=== PATIENT | female | born 1995 | race Caucasian/White ===

== ENCOUNTER 2019-09-03 08:55 | Emergency (ER) | payer SELFPAY ==
[2019-09-03] MEDS ORDERED: Sodium Chloride 0.9% 10 ML Syringe FLUSH PRN (08:57)
[2019-09-03] MEDS ORDERED: Sodium Chloride 0.9% 2.5 ML Syringe FLUSH PRN (08:57)
[2019-09-03] MEDS ORDERED: Dextrose 5%-Ringers 1,000 ML IV SCH (09:30)
[2019-09-03] MEDS ORDERED: Ondansetron 4 MG/2 ML SDV IVPUSH ONE (09:31)
--- NOTE | 2019-09-03 09:54 | EDM.PDOC ---
ED HPI GENERAL MEDICAL PROBLEM - General Chief Complaint: Gastrointestinal Problem Stated Complaint: NAUSEA AND VOMITING Time Seen by Provider: 09/03/19 08:57 Source of Information: Reports: Patient History Limitations: Reports: No Limitations - History of Present Illness INITIAL COMMENTS - FREE TEXT/NARRATIVE: 24-year-old female with no past medical history, presenting with nausea and vomiting. Patient took a home test which was positive x3. Last menstrual cycle was approximately 5 to 6 weeks ago. 2-day history of nausea with nonbloody emesis. Reports 5-6 episodes of emesis since midnight. No diarrhea or rectal bleeding. No hematemesis. No vaginal bleeding or discharge. No abdominal or back pain, fever, chest pain, shortness of breath. No self treatment prior to arrival. No other complaints. 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 Denies: Abdominal Pain, Black Stool, Bloody Stool, Constipation, Diarrhea, Distension, Hematemesis, Hematochezia, Melena : Denies: Discharge, Dysuria, Flank Pain, Hematuria, Pain Musculoskeletal: Denies: Back Pain Skin: Denies: Pallor, Rash Neurological: Denies: Headache Psychiatric: Reports: No Symptoms Hematologic/Lymphatic: Reports: No Symptoms Immunologic: Reports: No Symptoms ED EXAM, GI/ABD - Physical Exam Exam: See Below Text/Narrative:: Vital signs reviewed. Nursing notes reviewed. Constitutional: Awake, alert, non-distressed. Head: Normocephalic, atraumatic. Eyes: EOMI, conjunctiva normal, no discharge, no scleral icterus. Ears, Nose, Throat: External ears and nose normal, moist oral mucosa. Cardiovascular: 2+ radial pulse, capillary refill less than 2 seconds. Pulmonary: normal work of breathing, no accessory muscle use. Abdomen/GI: Soft, nontender, nondistended, no guarding or rigidity, no masses. Musculoskeletal: No deformities. Integumentary: Appropriate color for ethnicity, warm, dry, no pallor or jaundice, no rash. Neurologic: Alert, answering questions appropriately, normal speech, no facial droop, moving all extremities well. Psychiatric: Appropriate mood and affect, normal thought process. Course - Vital Signs Text/Narrative:: Patient hemodynamically stable, afebrile, well-appearing, looks nontoxic. Differential diagnosis includes but is not limited to: morning sickness, electrolyte disturbance, intravascular volume depletion, UTI, DKA, etc. Electrolytes show very mild hypokalemia, normal renal function, normal LFTs. Urinalysis has ketones. CBC looks reassuring. Given Zofran and 1 L of D5 lactated Ringer's. hCG 25,019. OB ultrasound demonstrated a single intrauterine gestation in approximately 6 weeks 0 days. Normal-looking amniotic fluid volume and decidual reaction. Cardiac activity was demonstrated. Patient felt better after Zofran and IV fluids. She is stable discharge home with outpatient OB clinic or primary care follow-up. Short course of Zofran was sent to the pharmacy. Strict emergency department return precautions were provided, patient indicated understanding. All questions were answered prior to departure. Discharged in good condition. Last Recorded V/S: Last Vital Signs Temp 36.6 C 09/03/19 09:18 Pulse 61 09/03/19 11:26 Resp 16 09/03/19 11:26 BP 98/47 L 09/03/19 11:26 Pulse Ox 100 09/03/19 11:26 - Orders/Labs/Meds Orders: Active Orders 24 hr Category Date Time Status Pulse Oximetry [RC] ASDIRECTED Care 09/03/19 08:57 Active Dextrose 5%-Ringers 1,000 ml Med 09/03/19 09:30 Active IV ASDIRECTED Sodium Chloride 0.9% [Saline Flush] Med 06/24/20 08:57 Active 10 ml FLUSH ASDIRECTED PRN Sodium Chloride 0.9% [Saline Flush] Med 09/03/19 08:57 Active 2.5 ml FLUSH ASDIRECTED PRN Saline Lock Insert [OM.PC] Stat Oth 09/03/19 08:57 Ordered Medication Orders Dextrose/Ringer's (Dextrose 5%-Ringers) 1,000 mls @ 1,000 mls/hr IV ASDIRECTED ELOY Sodium Chloride (Saline Flush) 10 ml FLUSH ASDIRECTED PRN PRN Reason: Keep Vein Open Last Admin: 09/03/19 09:21 Dose: 10 ml Documented by: DHARA Sodium Chloride (Saline Flush) 2.5 ml FLUSH ASDIRECTED PRN PRN Reason: Keep Vein Open Last Admin: 09/03/19 09:21 Dose: 2.5 ml Documented by: DHARA Labs: Laboratory Tests 09/03/19 09/03/19 09/03/19 Range/Units 09:09 09:28 09:28 WBC 7.38 (4.0-11.0) K/uL RBC 4.32 (4.30-5.90) M/uL Hgb 13.7 (12.0-16.0) g/dL Hct 40.1 (36.0-46.0) % MCV 92.8 (80.0-98.0) fL MCH 31.7 (27.0-32.0) pg MCHC 34.2 (31.0-37.0) g/dL RDW Std Deviation 41.8 (28.0-62.0) fl RDW Coeff of Paulie 12 (11.0-15.0) % Plt Count 223 (150-400) K/uL MPV 10.20 (7.40-12.00) fL Neut % (Auto) 74.7 (48.0-80.0) % Lymph % (Auto) 19.5 (16.0-40.0) % [place] % (Auto) 5.6 (0.0-15.0) % Eos % (Auto) 0.1 (0.0-7.0) % Baso % (Auto) 0.1 (0.0-1.5) % Neut # (Auto) 5.5 (1.4-5.7) K/uL Lymph # (Auto) 1.4 (0.6-2.4) K/uL [place] # (Auto) 0.4 (0.0-0.8) K/uL Eos # (Auto) 0.0 (0.0-0.7) K/uL Baso # (Auto) 0.0 (0.0-0.1) K/uL Nucleated RBC % 0.0 /100WBC Nucleated RBCs # 0 K/uL Sodium 134 L (136-145) mmol/L Potassium 3.4 L (3.5-5.1) mmol/L Chloride 99 (98-107) mmol/L Carbon Dioxide 25.0 (21.0-32.0) mmol/L BUN 7 (7.0-18.0) mg/dL Creatinine 0.8 (0.6-1.0) mg/dL Est Cr Clr Drug Dosing 96.73 mL/min Estimated GFR (MDRD) > 60.0 ml/min Glucose 97 (74-106) mg/dL Calcium 9.0 (8.5-10.1) mg/dL Total Bilirubin 0.8 (0.2-1.0) mg/dL AST 19 (15-37) IU/L ALT 26 (14-63) IU/L Alkaline Phosphatase 54 (46-116) U/L Total Protein 7.4 (6.4-8.2) g/dL Albumin 4.1 (3.4-5.0) g/dL Globulin 3.3 (2.6-4.0) g/dL Albumin/Globulin Ratio 1.2 (0.9-1.6) HCG, Qual (NEG) HCG, Quant mIU/mL Urine Color YELLOW Urine Appearance CLEAR Urine pH 6.0 (5.0-8.0) Ur Specific [place] >= 1.030 (1.001-1.035) Urine Protein NEGATIVE (NEGATIVE) mg/dL Urine Glucose (UA) NEGATIVE (NEGATIVE) mg/dL Urine Ketones 40 H (NEGATIVE) mg/dL Urine Occult Blood NEGATIVE (NEGATIVE) Urine Nitrite NEGATIVE (NEGATIVE) Urine Bilirubin NEGATIVE (NEGATIVE) Urine Urobilinogen 0.2 (<2.0) EU/dL Ur Leukocyte Esterase NEGATIVE (NEGATIVE) 09/03/19 09/03/19 Range/Units 09:28 09:28 WBC (4.0-11.0) K/uL RBC (4.30-5.90) M/uL Hgb (12.0-16.0) g/dL Hct (36.0-46.0) % MCV (80.0-98.0) fL MCH (27.0-32.0) pg MCHC (31.0-37.0) g/dL RDW Std Deviation (28.0-62.0) fl RDW Coeff of Paulie (11.0-15.0) % Plt Count (150-400) K/uL MPV (7.40-12.00) fL Neut % (Auto) (48.0-80.0) % Lymph % (Auto) (16.0-40.0) % [place] % (Auto) (0.0-15.0) % Eos % (Auto) (0.0-7.0) % Baso % (Auto) (0.0-1.5) % Neut # (Auto) (1.4-5.7) K/uL Lymph # (Auto) (0.6-2.4) K/uL [place] # (Auto) (0.0-0.8) K/uL Eos # (Auto) (0.0-0.7) K/uL Baso # (Auto) (0.0-0.1) K/uL Nucleated RBC % /100WBC Nucleated RBCs # K/uL Sodium (136-145) mmol/L Potassium (3.5-5.1) mmol/L Chloride (98-107) mmol/L Carbon Dioxide (21.0-32.0) mmol/L BUN (7.0-18.0) mg/dL Creatinine (0.6-1.0) mg/dL Est Cr Clr Drug Dosing mL/min Estimated GFR (MDRD) ml/min Glucose (74-106) mg/dL Calcium (8.5-10.1) mg/dL Total Bilirubin (0.2-1.0) mg/dL AST (15-37) IU/L ALT (14-63) IU/L Alkaline Phosphatase (46-116) U/L Total Protein (6.4-8.2) g/dL Albumin (3.4-5.0) g/dL Globulin (2.6-4.0) g/dL Albumin/Globulin Ratio (0.9-1.6) HCG, Qual POSITIVE H (NEG) HCG, Quant 63039.0 mIU/mL Urine Color Urine Appearance Urine pH (5.0-8.0) Ur Specific [place] (1.001-1.035) Urine Protein (NEGATIVE) mg/dL Urine Glucose (UA) (NEGATIVE) mg/dL Urine Ketones (NEGATIVE) mg/dL Urine Occult Blood (NEGATIVE) Urine Nitrite (NEGATIVE) Urine Bilirubin (NEGATIVE) Urine Urobilinogen (<2.0) EU/dL Ur Leukocyte Esterase (NEGATIVE) Meds: Medications Generic Name Dose Route Start Last Admin Trade Name Freq PRN Reason Stop Dose Admin Dextrose/Ringer's 1,000 mls @ 1,000 mls/hr 09/03/19 09:30 Dextrose 5%-Ringers IV ASDIRECTED ELOY Sodium Chloride 10 ml 09/03/19 08:57 09/03/19 09:21 Saline Flush FLUSH 10 ml ASDIRECTED PRN Administration Keep Vein Open Sodium Chloride 2.5 ml 09/03/19 08:57 09/03/19 09:21 Saline Flush FLUSH 2.5 ml ASDIRECTED PRN Administration Keep Vein Open Discontinued Medications Generic Name Dose Route Start Last Admin Trade Name Freq PRN Reason Stop Dose Admin Ondansetron HCl 4 mg 09/03/19 09:31 09/03/19 09:51 Zofran IVPUSH 09/03/19 09:32 4 mg ONETIME ONE Administration Departure - Departure Time of Disposition: 11:37 Disposition: Home, Self-Care 01 Condition: Good Clinical Impression: Nausea and vomiting during - Discharge Information *PRESCRIPTION DRUG MONITORING PROGRAM REVIEWED*: Not Applicable *COPY OF PRESCRIPTION DRUG MONITORING REPORT IN PATIENT AIDE: Not Applicable Prescriptions: Ondansetron [Zofran] 4 mg PO Q8H PRN #10 tab PRN Reason: Nausea/Vomiting Instructions: Nausea and Vomiting, Adult [facility]errals: [facility] [Provider Group] - 2 Weeks (For routine follow-up care.) Forms: ED Department Discharge Additional Instructions: Thank you for choosing the [facility] emergency department in [place] for your medical needs today. It was a pleasure caring for you. You were seen in the emergency department for nausea and vomiting. Your urinalysis showed that you are mildly dehydrated. We gave you some IV fluids and nausea medication. Your looks reassuring by the ultrasound study. I prescribed a short course of Zofran for nausea to the pharmacy. If this is not working and you are having severe vomiting, you should come back to the ER. I recommend calling the [facility] to set up an initial OB clinic appointment. Please return the emergency department immediately if your symptoms worsen or if you feel worse. The following information is given to patients seen in the emergency department who are being discharged. This information is to outline your options for follow-up care. We provide all patients seen in our emergency department with a follow-up referral. The need for follow-up, as well as the timing and circumstances, are variable depending upon the specifics of your emergency department visit. If you don't have a primary care physician on staff, we will provide you with a referral. We always advise you to contact your personal physician following an emergency department visit to inform them of the circumstance of the visit and for follow-up with them and/or the need for any referrals to a consulting specialist. The emergency department will also refer you to a specialist when appropriate. This referral assures that you have the opportunity for follow-up care with a specialist. All of these measure are taken in an effort to provide you with optimal care, which includes your follow-up. Under all circumstances we always encourage you to contact your private physician who remains a resource for coordinating your care. When calling for follow-up care, please make the office aware that this follow-up is from your recent emergency room visit. If for any reason you are refused follow-up, please contact the Emergency Department at and asked to speak to the emergency department charge nurse. If you do not have a primary care physician that is caring for you, you can contact these clinics below to set up an appointment to establish care: [facility] - [facility] [address] [place] [id number] [address] [place] [address] Sepsis Event Note (ED) - Evaluation Sepsis Screening Result: No Definite Risk - Focused Exam Vital Signs: Vital Signs Temp Pulse Resp BP Pulse Ox 09/03/19 11:26 61 16 98/47 L 100 09/03/19 09:18 36.6 C 68 16 103/60 99 - My Orders Last 24 Hours: My Active Orders 09/03/19 08:57 Pulse Oximetry [RC] ASDIRECTED Sodium Chloride 0.9% [Saline Flush] 10 ml FLUSH ASDIRECTED PRN Sodium Chloride 0.9% [Saline Flush] 2.5 ml FLUSH ASDIRECTED PRN Saline Lock Insert [OM.PC] Stat 09/03/19 09:30 Dextrose 5%-Ringers 1,000 ml IV ASDIRECTED - Assessment/Plan Last 24 Hours: My Active Orders 09/03/19 08:57 Pulse Oximetry [RC] ASDIRECTED Sodium Chloride 0.9% [Saline Flush] 10 ml FLUSH ASDIRECTED PRN Sodium Chloride 0.9% [Saline Flush] 2.5 ml FLUSH ASDIRECTED PRN Saline Lock Insert [OM.PC] Stat 09/03/19 09:30 Dextrose 5%-Ringers 1,000 ml IV ASDIRECTED
[2019-09-03 10:22] LABS: BLOOD UREA NITROGEN,BUN 7 mg/dL (7.0-18.0); CHLORIDE,CL 99 mmol/L (98-107); GLUCOSE RANDOM 97 mg/dL (74-106); POTASSIUM,K 3.4 mmol/L (3.5-5.1); SODIUM,NA 134 mmol/L (136-145)
--- NOTE | 2019-09-03 10:54 | US ---
First trimester obstetrical ultrasound: Multiple real-time images were obtained transvaginally. Comparison: No prior study for current . Dates: Current ultrasound: [facility] 04/28/20, gestational age 6 weeks 0 days Single intrauterine gestation is seen. Amniotic fluid volume is normal. Normal decidual reaction is seen. Yolk sac and pole are seen. Heart activity is noted. Maternal ovaries are within normal limits. Measurements: Christie-rump length: 2.60 cm - 5 weeks 6 days Mean sac diameter: 1.33 cm - 6 weeks 1 day Heart rate: 106 BPM Impression: 1. Single intrauterine gestation. Dates as noted above. 2. Low heart rate believed to to be normal for this early gestational age. No complicating process is seen. Diagnostic code #1 This report was dictated in MDT
== END 2019-09-03 11:55 | disposition home or self-care (01) ==
LOC: MW.ED 08:55
DX: O21.9 Vomiting of pregnancy, unspecified (principal); Z88.0 Allergy status to penicillin; Z3A.01 Less than 8 weeks gestation of pregnancy
CPT/HCPCS: 36415; 76817; 80053; 81003; 84702; 84703; 85025; 96374; 99284; J2405

== ENCOUNTER 2019-12-05 18:37 | Emergency (ER) | payer OTHER | END 2019-12-05 19:24 | disposition left against medical advice (07) | LOC: MW.ED 18:37 | DX: Z53.21 Procedure and treatment not carried out due to patient leaving prior to being seen by health care provider (principal) ==

== ENCOUNTER 2020-03-23 15:45 | Emergency (ER) | payer OTHER ==
--- NOTE | 2020-03-23 16:57 | EDM.PDOC ---
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 The patient states that she had a menstrual period in February but does not know when. Positive test on March 19. 3 para 0 miscarriage 1 1. Otherwise healthy without chronic medical problems. Denies nausea vomiting diarrhea constipation. She has a brown formed stool daily. Denies vaginal bleeding or discharge. No dysuria. Lying in a p osition helps the pain. It is a throbbing and stabbing in character. LLQ Pain Score (Numeric/FACES): 6 - Related Data Allergies Allergy/AdvReac Type Severity Reaction Status Date / Time Penicillins Allergy Hives Verified 03/23/20 16:46 Home Meds: Home Meds . 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 ED EXAM, RENAL/ - Physical Exam Exam: See Below Exam Limited By: No Limitations General Appearance: Alert, No Apparent Distress Ears: Normal External Exam Nose: Normal Inspection Throat/Mouth: Normal Inspection Head: Atraumatic, Normocephalic Neck: Normal Inspection Respiratory/Chest: No Respiratory Distress, Lungs Clear, Normal Breath Sounds Cardiovascular: Normal Peripheral Pulses, Regular Rate, Rhythm, No Edema, No Murmur GI/Abdominal: Soft, Non-Tender, No Distention Back Exam: Normal Inspection. No: CVA Tenderness (L), CVA Tenderness (R) Extremities: Normal Inspection Neurological: Alert, Oriented, Normal Cognition Psychiatric: Normal Affect, Normal Mood Skin Exam: Warm, Dry, Intact, Normal Color, No Rash Lymphatic: No Adenopathy Course - Vital Signs Last Recorded V/S: Last Vital Signs Temp 35.8 C L 03/23/20 16:34 Pulse 75 03/23/20 16:34 Resp 20 03/23/20 16:34 BP 118/52 L 03/23/20 16:34 Pulse Ox 96 03/23/20 16:34 - Orders/Labs/Meds Labs: Laboratory Tests 03/23/20 03/23/20 03/23/20 Range/Units 16:20 17:30 17:30 WBC 6.45 (4.0-11.0) K/uL RBC 4.43 (4.30-5.90) M/uL Hgb 12.2 (12.0-16.0) g/dL Hct 37.9 (36.0-46.0) % MCV 85.6 (80.0-98.0) fL MCH 27.5 (27.0-32.0) pg MCHC 32.2 (31.0-37.0) g/dL RDW Std Deviation 49.8 (28.0-62.0) fl RDW Coeff of Paulie 16 H (11.0-15.0) % Plt Count 251 (150-400) K/uL MPV 10.50 (7.40-12.00) fL Neut % (Auto) 63.1 (48.0-80.0) % Lymph % (Auto) 30.1 (16.0-40.0) % [place] % (Auto) 5.6 (0.0-15.0) % Eos % (Auto) 0.9 (0.0-7.0) % Baso % (Auto) 0.3 (0.0-1.5) % Neut # (Auto) 4.1 (1.4-5.7) K/uL Lymph # (Auto) 1.9 (0.6-2.4) K/uL [place] # (Auto) 0.4 (0.0-0.8) K/uL Eos # (Auto) 0.1 (0.0-0.7) K/uL Baso # (Auto) 0.0 (0.0-0.1) K/uL Nucleated RBC % 0.0 /100WBC Nucleated RBCs # 0 K/uL HCG, Quant 3337.0 mIU/mL Urine Color YELLOW Urine Appearance CLEAR Urine pH 7.0 (5.0-8.0) Ur Specific [place] 1.020 (1.001-1.035) Urine Protein NEGATIVE (NEGATIVE) mg/dL Urine Glucose (UA) NEGATIVE (NEGATIVE) mg/dL Urine Ketones NEGATIVE (NEGATIVE) mg/dL Urine Occult Blood NEGATIVE (NEGATIVE) Urine Nitrite NEGATIVE (NEGATIVE) Urine Bilirubin NEGATIVE (NEGATIVE) Urine Urobilinogen 0.2 (<2.0) EU/dL Ur Leukocyte Esterase NEGATIVE (NEGATIVE) Urine RBC 0-1 (0-2/HPF) Urine WBC 0-1 (0-5/HPF) Ur Epithelial Cells RARE (NONE-FEW) Urine Bacteria RARE (NEGATIVE) - Re-Assessments/Exams Free Text/Narrative Re-Assessment/Exam: 03/23/20 18:[address] 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 Same will see patient early am in the clinic. NPO status. Departure - Departure Time of Disposition: 18:55 Disposition: Home, Self-Care 01 Condition: Good Clinical Impression: Tubal - Discharge Information Referrals: PCP,None [Primary Care Provider] - Sascha Little MD [Physician] - Forms: ED Department Discharge Additional Instructions: The following information is given to patients seen in the emergency department who are being discharged to home. This information is to outline your options for follow-up care. We provide all patients seen in our emergency department with a follow-up referral. The need for follow-up, as well as the timing and circumstances, are variable depending upon the specifics of your emergency department visit. If you don't have a primary care physician on staff, we will provide you with a referral. We always advise you to contact your personal physician following an emergency department visit to inform them of the circumstance of the visit and for follow-up with them and/or the need for any referrals to a consulting specialist. The emergency department will also refer you to a specialist when appropriate. This referral assures that you have the opportunity for follow-up care with a specialist. All of these measure are taken in an effort to provide you with optimal care, which includes your follow-up. Under all circumstances we always encourage you to contact your private physician who remains a resource for coordinating your care. When calling for follow-up care, please make the office aware that this follow-up is from your recent emergency room visit. If for any reason you are refused follow-up, please contact the [facility] Emergency Department at and asked to speak to the emergency department charge nurse. 1. Return to the emergency room promptly for vaginal bleeding or increasing pelvic pain 2. To the [facility], Dr. Little at 9 AM tomorrow morning. Do not eat or drink anything after midnight tonight. Sepsis Event Note (ED) - Evaluation Sepsis Screening Result: No Definite Risk - Focused Exam Vital Signs: Vital Signs Temp Pulse Resp BP Pulse Ox 03/23/20 16:34 35.8 C L 75 20 118/52 L 96
--- NOTE | 2020-03-23 18:20 | US ---
INDICATION: Left lower quadrant and pelvic pain TECHNIQUE: Ultrasound OB pelvis transvaginal. Real-time boogie-scale imaging of the pelvis was performed. COMPARISON: None FINDINGS: Sonographic imaging demonstrates 2 cystic areas in the midportion and fundal regions of the uterus. These measure up to 4 mm in size. There is no yolk sac or embryo identified. There is a nabothian cyst on the cervix. The uterus measures 8.3 x 4.8 x 5.9 cm. Normal echotexture of the myometrium. The endometrium measures 1.2 cm in thickness. The ovaries are of normal size. There is a 2.3 x 1.7 x 2.2 cm complex cystic mass on the right ovary. There is a small amount of free fluid in the pelvis. The left ovary is normal in appearance. No evidence for ovarian torsion. IMPRESSION: Complex cystic mass on the right ovary with small amount of free fluid. Ectopic cannot be excluded. Two tiny cystic areas in the uterus. One of these could conceivably represent a early gestational sac. Recommend correlation with HCG and gynecology consultation. Findings discussed with Gaby Bryan at 6:18 p.m. on March 23, 2020. Dictated by Rita Santos MD @ Mar 23 2020 6:08PM Signed by Dr. Rita Santos @ Mar 23 2020 6:19PM
== END 2020-03-23 19:10 | disposition home or self-care (01) ==
LOC: MW.ED 15:45
DX: O00.109 Unspecified tubal pregnancy without intrauterine pregnancy (principal); Z88.0 Allergy status to penicillin
CPT/HCPCS: 36415; 76801; 76801-26; 81001; 84702; 85025; 99283; 99284-25

== ENCOUNTER 2020-03-24 04:28 | Emergency (ER) | payer OTHER ==
--- NOTE | 2020-03-24 04:49 | EDM.PDOC ---
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 The patient is nauseated and feels like she is going to vomit. She was here earlier at 5:30 PM and had a work-up for abdominal pain and was discovered to have a probable ectopic by ultrasound with a beta hCG of over 3300. The patient is a G3, P0 Ab2 (1 spontaneous and 1 elective). Is nauseated and feels weak with abdominal pain but is not lightheaded or orthostatic not diaphoretic. You have the prior visit reveals that on ultrasound she had a complex mass she had had pain for 3days. Since were made for her to see you the polymerization engineer at 8:30 in the morning this morning. The patient is n.p.o. since 9 PM. [] Review of systems: As per history of present illness and below otherwise all systems reviewed and negative. Past medical history: As per history of present illness and as reviewed below otherwise noncontributory. Surgical history: As per history of present illness and as reviewed below otherwise noncontributory. Social history: No reported history of drug or alcohol abuse. Family history: As per history of present illness and as reviewed below otherwise noncontributory. Physical exam: Constitutional - well developed, well-nourished and in no acute distress HEENT - normocephalic, no evidence of trauma - external nose and mouth normal - no mass in neck and no JVD - mucosae moist EYES - full EOM, PERRL, no icterus - no evidence of inflammation, injection, or drainage Respiratory - no respiratory distress, equal bilateral expansion, lungs clear to auscultation and no abnormal lung sounds Cardiovascular - Regular Rhythm with S1 and S2 appreciated and no murmur, gallop or rub. GI -the right lower quadrant abdomen soft without distension or organomegaly - normal bowel sounds - no guard or rebound Musculoskeletal no gross deformity of long bones or joints - no tenderness, swelling or edema Neurologic - Alert and oriented times four - CN II-XII grossly intact - motor sensory and coordination symmetrically normal Psychiatric - appropriate mood and affect with normal thought content Hematologic - No petechiae or purpura - mucosa appropriate color and sclera not pale - normal nail bed color and refill Integument - no rash or evidence of trauma - normal turgor Diagnostics: [] Therapeutics: [] Impression: [] Plan: [] Definitive disposition and diagnosis as appropriate pending reevaluation and review of above. Abdomen Pain Score (Numeric/FACES): 7 Groin Pain Score (Numeric/FACES): 7 - Related Data Allergies Allergy/AdvReac Type Severity Reaction Status Date / Time latex Allergy Rash Verified 03/24/20 04:47 Penicillins Allergy Hives Verified 03/24/20 04:47 Home Meds: Home Meds . [No Known Home Meds] 03/23/20 [History] Past Medical History - Past Health History Medical/Surgical History: Denies Medical/Surgical History BELT LACER History: Reports: , Spontaneous - Infectious Disease History Infectious Disease History: Reports: None Social & Family History - Family History Family Medical History: No Pertinent Family History - Caffeine Use Caffeine Use: Reports: None ED ROS GENERAL - Review of Systems Review Of Systems: Comprehensive ROS is negative, except as noted in HPI. ED EXAM, GENERAL - Physical Exam Exam: See Below Free Text/Narrative:: My physical exam is in the HPI Course - Vital Signs Text/Narrative:: 05 40 2 AM blood counts identical to the 11 hours before this drawl. Patient had her pain relieved and her fear reassured. She wants to go home and come back for the visit that scheduled with Dr. Little Last Recorded V/S: Last Vital Signs Temp 36.6 C 03/24/20 04:44 Pulse 78 03/24/20 04:44 Resp 16 03/24/20 04:44 BP 99/53 L 03/24/20 04:44 Pulse Ox 97 03/24/20 04:44 - Orders/Labs/Meds Orders: Active Orders 24 hr Category Date Time Status TYPE AND SCREEN [BBK] Stat Lab 03/24/20 05:11 Received Sodium Chloride 0.9% [Normal Saline] 500 ml Med 03/24/20 05:00 Active IV .BOLUS Sodium Chloride 0.9% [Saline Flush] Med 03/24/20 04:43 Active 10 ml FLUSH ASDIRECTED PRN Sodium Chloride 0.9% [Saline Flush] Med 03/24/20 04:43 Active 2.5 ml FLUSH ASDIRECTED PRN Saline Lock Insert [OM.PC] Stat Oth 03/24/20 04:43 Ordered Medication Orders Sodium Chloride (Normal Saline) 500 mls @ 250 mls/hr IV .BOLUS ELOY Last Admin: 03/24/20 04:57 Dose: 250 mls/hr Documented by: SHAKEEL Sodium Chloride (Saline Flush) 10 ml FLUSH ASDIRECTED PRN PRN Reason: Keep Vein Open Last Admin: 03/24/20 05:00 Dose: 10 ml Documented by: SHAKEEL Sodium Chloride (Saline Flush) 2.5 ml FLUSH ASDIRECTED PRN PRN Reason: Keep Vein Open Last Admin: 03/24/20 05:00 Dose: 2.5 ml Documented by: SHAKEEL Labs: Laboratory Tests 03/24/20 Range/Units 04:45 WBC 5.87 (4.0-11.0) K/uL RBC 4.48 (4.30-5.90) M/uL Hgb 12.2 (12.0-16.0) g/dL Hct 38.3 (36.0-46.0) % MCV 85.5 (80.0-98.0) fL MCH 27.2 (27.0-32.0) pg MCHC 31.9 (31.0-37.0) g/dL RDW Std Deviation 49.9 (28.0-62.0) fl RDW Coeff of Paulie 16 H (11.0-15.0) % Plt Count 237 (150-400) K/uL MPV 10.00 (7.40-12.00) fL Neut % (Auto) 52.3 (48.0-80.0) % Lymph % (Auto) 41.1 H (16.0-40.0) % [place] % (Auto) 5.5 (0.0-15.0) % Eos % (Auto) 0.9 (0.0-7.0) % Baso % (Auto) 0.2 (0.0-1.5) % Neut # (Auto) 3.1 (1.4-5.7) K/uL Lymph # (Auto) 2.4 (0.6-2.4) K/uL [place] # (Auto) 0.3 (0.0-0.8) K/uL Eos # (Auto) 0.1 (0.0-0.7) K/uL Baso # (Auto) 0.0 (0.0-0.1) K/uL Nucleated RBC % 0.0 /100WBC Nucleated RBCs # 0 K/uL Meds: Medications Generic Name Dose Route Start Last Admin Trade Name Freq PRN Reason Stop Dose Admin Sodium Chloride 500 mls @ 250 mls/hr 03/24/20 05:00 03/24/20 04:57 Normal Saline IV 250 mls/hr .BOLUS ELOY Administration Sodium Chloride 10 ml 03/24/20 04:43 03/24/20 05:00 Saline Flush FLUSH 10 ml ASDIRECTED PRN Administration Keep Vein Open Sodium Chloride 2.5 ml 03/24/20 04:43 03/24/20 05:00 Saline Flush FLUSH 2.5 ml ASDIRECTED PRN Administration Keep Vein Open Discontinued Medications Generic Name Dose Route Start Last Admin Trade Name Freq PRN Reason Stop Dose Admin Morphine Sulfate 4 mg 03/24/20 04:52 03/24/20 04:58 Morphine IVPUSH 03/24/20 04:53 4 mg ONETIME ONE Administration Ondansetron HCl 4 mg 03/24/20 04:51 03/24/20 04:58 Zofran IVPUSH 03/24/20 04:52 4 mg ONETIME ONE Administration Departure - Departure Time of Disposition: 05:43 Disposition: Home, Self-Care 01 Condition: Good Clinical Impression: Pelvic pain, Ovarian mass, Positive test - Discharge Information Instructions: Pelvic Pain, Female, [id number] Referrals: PCP,None [Primary Care Provider] - Sascha Little MD [Physician] - Forms: ED Department Discharge Additional Instructions: If you are pale sweaty or passing out you need to return immediately also if you bleed heavily. Otherwise remain n.p.o. or without eating or drinking anything and see Dr. Little as arranged at 8:30 AM this morning The following information is given to patients seen in the emergency department who are being discharged to home. This information is to outline your options for follow-up care. We provide all patients seen in our emergency department with a follow-up referral. The need for follow-up, as well as the timing and circumstances, are variable depending upon the specifics of your emergency department visit. If you don't have a primary care physician on staff, we will provide you with a referral. We always advise you to contact your personal physician following an emergency department visit to inform them of the circumstance of the visit and for follow-up with them and/or the need for any referrals to a consulting specialist. The emergency department will also refer you to a specialist when appropriate. This referral assures that you have the opportunity for follow-up care with a specialist. All of these measure are taken in an effort to provide you with optimal care, which includes your follow-up. Under all circumstances we always encourage you to contact your private physician who remains a resource for coordinating your care. When calling for follow-up care, please make the office aware that this follow-up is from your recent emergency room visit. If for any reason you are refused follow-up, please contact the [facility] Emergency Department at and asked to speak to the emergency department charge nurse. Sepsis Event Note (ED) - Evaluation Sepsis Screening Result: No Definite Risk - Focused Exam Vital Signs: Vital Signs Temp Pulse Resp BP Pulse Ox 03/24/20 04:44 36.6 C 78 16 99/53 L 97 - My Orders Last 24 Hours: My Active Orders 03/24/20 04:43 Sodium Chloride 0.9% [Saline Flush] 10 ml FLUSH ASDIRECTED PRN Sodium Chloride 0.9% [Saline Flush] 2.5 ml FLUSH ASDIRECTED PRN Saline Lock Insert [OM.PC] Stat 03/24/20 05:00 Sodium Chloride 0.9% [Normal Saline] 500 ml IV .BOLUS 03/24/20 05:11 TYPE AND SCREEN [BBK] Stat - Assessment/Plan Last 24 Hours: My Active Orders 03/24/20 04:43 Sodium Chloride 0.9% [Saline Flush] 10 ml FLUSH ASDIRECTED PRN Sodium Chloride 0.9% [Saline Flush] 2.5 ml FLUSH ASDIRECTED PRN Saline Lock Insert [OM.PC] Stat 03/24/20 05:00 Sodium Chloride 0.9% [Normal Saline] 500 ml IV .BOLUS 03/24/20 05:11 TYPE AND SCREEN [BBK] Stat
[2020-03-24] MEDS: Sodium Chloride 0.9% 500 ML IV SCH (04:57)
[2020-03-24] MEDS: Ondansetron 4 MG/2 ML SDV IVPUSH ONE (04:58)
[2020-03-24] MEDS: Morphine 4 MG/ML Syringe IVPUSH ONE (04:58)
[2020-03-24] MEDS: Sodium Chloride 0.9% 10 ML Syringe FLUSH PRN (05:00)
[2020-03-24] MEDS: Sodium Chloride 0.9% 2.5 ML Syringe FLUSH PRN (05:00)
== END 2020-03-24 05:54 | disposition home or self-care (01) ==
LOC: MW.ED 04:28
DX: O99.891 Other specified diseases and conditions complicating pregnancy (principal); R10.2 Pelvic and perineal pain; N83.8 Other noninflammatory disorders of ovary, fallopian tube and broad ligament; R11.0 Nausea; R53.1 Weakness; Z91.040 Latex allergy status; Z88.0 Allergy status to penicillin; Z3A.01 Less than 8 weeks gestation of pregnancy
CPT/HCPCS: 36415; 85025; 86850; 86900; 86901; 96374; 96375; 99284; J2270; J2405; J7040; 99282

== ENCOUNTER 2020-03-25 09:17 | Day surgery (SDC) | payer OTHER ==
[~2020-03-25 09:17] MED LIST: Fluorescein 5 ML Vial ONE; Lactated Ringers 1,000 ML IV SCH
[2020-03-25] MEDS ORDERED: Propofol 200 MG/20 ML SDV ONE (10:39)
[2020-03-25] MEDS ORDERED: Midazolam 1 MG/ML 2 ML SDV ONE ×2 (10:40→11:53)
[2020-03-25] MEDS ORDERED: fentaNYL 100 MCG/2 ML SDV ONE (10:40)
[2020-03-25] MEDS ORDERED: Rocuronium Bromide 50 MG/5 ML Syringe ONE (10:42)
[2020-03-25] MEDS ORDERED: Succinylcholine/Sod PF 100 MG/5 ML SYRINGE IV ONE (10:42)
--- NOTE | 2020-03-25 10:43 | PCM.PREANE ---
Preanesthetic Assessment - Anesthesia/Transfusion/Family Hx Anesthesia History: No Prior Anesthesia Family History of Anesthesia Reaction: No Transfusion History: No Prior Transfusion(s) - Review of Systems General: No Symptoms Pulmonary: No Symptoms Cardiovascular: No Symptoms Gastrointestinal: No Symptoms Neurological: No Symptoms Other: Reports: None - Physical Assessment NPO Status Date: 03/24/20 NPO Status Time: 21:00 Vital Signs: Last Vital Signs Temp 36.4 C 03/25/20 09:30 Pulse 82 03/25/20 09:30 Resp 15 03/25/20 09:30 BP 116/55 L 03/25/20 09:30 Pulse Ox 100 03/25/20 09:30 Height: 1.65 m Weight: 61.235 kg ASA Class: 2 Mental Status: Alert & Oriented x3 Airway Class: Mallampati = 2 Dentition: Reports: Partial (upper retainer) Thyro-Mental Finger Breadths: 3 Mouth Opening Finger Breadths: 3 ROM/Head Extension: Full Lungs: Clear to Auscultation, Normal Respiratory Effort Cardiovascular: Regular Rate, Regular Rhythm - Lab Values: Laboratory Last Values SARS-CoV-2 RNA ([place]) NEGATIVE (NEGATIVE) 03/25/20 08:24 - Allergies Allergies/Adverse Reactions: Allergies Allergy/AdvReac Type Severity Reaction Status Date / Time latex Allergy Rash Verified 03/24/20 11:28 Penicillins Allergy Hives Verified 03/24/20 11:28 - Acknowledgements Anesthesia Type Planned: General Anesthesia (discussed possibility of ponv. 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: , 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 Musculoskeletal History: Reports: None Neurological History: Reports: None Psychiatric History: Reports: Anxiety, Panic Attack Endocrine/Metabolic History: Reports: None Hematologic History: Reports: None Immunologic History: Reports: None Oncologic (Cancer) History: Reports: None Dermatologic History: Reports: None - Infectious Disease History Infectious Disease History: Reports: None - Past Surgical History Head Surgeries/Procedures: Reports: None Other Head Surgeries/Procedures: dental extractions HEENT Surgical History: Reports: None Cardiovascular Surgical History: Reports: None Respiratory Surgical History: Reports: None GI Surgical History: Reports: None Female Surgical History: Reports: None Endocrine Surgical History: Reports: None Neurological Surgical History: Reports: None Musculoskeletal Surgical History: Reports: None Oncologic Surgical History: Reports: None Dermatological Surgical History: Reports: None - SUBSTANCE USE Tobacco Use Status *Q: Current Every Day Tobacco User Tobacco Use Within Last Twelve Months: Vaping Second Hand Smoke Exposure: No Days Per Week of Alcohol Use: 0 (stopped 2 weeks ago) Recreational Drug Use History: Yes Recreational Drug Type: Reports: Marijuana/Hashish (stopped 2 weeks ago(when she found out she was )) Recreational Drug Last Use: 2 weeks ago - HOME MEDS Home Medications: Home Meds Albuterol [Ventolin HFA] 1 - 2 puff INH ASDIRECTED PRN 03/24/20 [History] - CURRENT (IN HOUSE) MEDS Current Meds: Current Medications Lactated Ringer's (Ringers, Lactated) 1,000 mls @ 100 mls/hr IV ASDIRECTED ELOY Discontinued Medications Fluorescein Sodium (Ak-Fluor) Confirm Administered Dose 5 ml .ROUTE .STK-MED ONE Stop: 03/25/20 07:53 Acetaminophen (Ofirmev) Confirm Administered Dose 100 mls @ as directed .ROUTE .STK-MED ONE Stop: 03/25/20 07:53 Acetaminophen (Ofirmev) Confirm Administered Dose 100 mls @ as directed .ROUTE .STK-MED ONE Stop: 03/25/20 10:38
[2020-03-25] MEDS ORDERED: Octyl 2-Cyanoacrylate 1 Tube ONE (11:12)
[2020-03-25] MEDS ORDERED: Ondansetron 4 MG/2 ML SDV IVPUSH PRN (11:33)
[2020-03-25] MEDS ORDERED: fentaNYL 100 MCG/2 ML SDV IVPUSH PRN (11:33)
[2020-03-25] MEDS ORDERED: 50% Dextrose in Water 50 ML Syringe IVPUSH PRN (11:33)
[2020-03-25] MEDS ORDERED: Naloxone 0.4 MG/ML Syringe IVPUSH PRN (11:33)
[2020-03-25] MEDS ORDERED: EPINEPHrine 1:10,000 1 MG/10 ML Syringe IVPUSH PRN (11:33)
[2020-03-25] MEDS ORDERED: Atropine 0.1 MG/ML 10 ML Syringe IVPUSH PRN ×2 (11:33)
[2020-03-25] MEDS ORDERED: Albuterol 0.083% 2.5 MG/3 ML Neb Soln NEB PRN (11:33)
[2020-03-25] MEDS ORDERED: HYDROmorphone 2 MG/ML Syringe IVPUSH PRN (11:33)
[2020-03-25] MEDS ORDERED: Glycopyrrolate 0.2 MG/ML SDV ONE (11:39)
[2020-03-25] MEDS ORDERED: Sugammadex Sodium 200 MG/2 ML VIAL ONE (11:41)
--- NOTE | 2020-03-25 11:59 | PCM.OPNOTE ---
- General Post-Op/Procedure Note Date of Surgery/Procedure: 03/25/20 Operative Procedure(s): D&E dignostic laparoscopy. Post-Op Diagnosis: Same Anesthesia Technique: General ET Tube Primary Surgeon: Sascha Little EBL in mLs: 150 Complications: None Condition: Good
[2020-03-25] MEDS ORDERED: Methotrexate PF 50 MG/2 ML SDV IM ONE (12:00)
--- NOTE | 2020-03-25 12:00 | PCM.DCSUM1 ---
Discharge Summary - Hospital Course Diagnosis: Stroke: No - Discharge Data Discharge Date: 03/25/20 Discharge Disposition: Home, Self-Care 01 Condition: Good - Referral to Home Health Primary Care Physician: Sascha Little MD - Patient Summary/Data Operative Procedure(s) Performed: D&E dignostic laparoscopy. - Patient Instructions Diet: Usual Diet as Tolerated Activity: As Tolerated Driving: Do Not Drive Showering/Bathing: May Shower - Discharge Plan Home Medications: Home Meds Albuterol [Ventolin HFA] 1 - 2 puff INH ASDIRECTED PRN 03/24/20 [History] - Discharge Summary/Plan Comment DC Time >30 min.: Yes - General Info Date of Service: 03/25/20 Functional Status: Reports: Pain Controlled - Review of Systems General: Reports: No Symptoms HEENT: Reports: No Symptoms Pulmonary: Reports: No Symptoms Cardiovascular: Reports: No Symptoms Gastrointestinal: Reports: No Symptoms Genitourinary: Reports: No Symptoms Musculoskeletal: Reports: No Symptoms Skin: Reports: No Symptoms Neurological: Reports: No Symptoms Psychiatric: Reports: No Symptoms - Patient Data Vitals - Most Recent: Last Vital Signs Temp 36.4 C 03/25/20 09:30 Pulse 82 03/25/20 09:30 Resp 15 03/25/20 09:30 BP 116/55 L 03/25/20 09:30 Pulse Ox 100 03/25/20 09:30 Weight - Most Recent: 61.235 kg Lab Results - Last 24 hrs: Laboratory Results - last 24 hr 03/25/20 Range/Units 08:24 SARS-CoV-2 RNA ([place]) NEGATIVE (NEGATIVE) Med Orders - Current: Current Medications Albuterol (Proventil Neb Soln) 2.5 mg NEB ONETIME PRN PRN Reason: Wheezing Atropine Sulfate (Atropine 0.1 Mg/Ml) 0.5 mg IVPUSH ASDIRECTED PRN PRN Reason: Hypo-perfusion Atropine Sulfate (Atropine 0.1 Mg/Ml) 1 mg IVPUSH ASDIRECTED PRN PRN Reason: Hypo-Perfusion Dextrose/Water (Dextrose 50% In Water) 50 ml IVPUSH ASDIRECTED PRN PRN Reason: Hypoglycemia Epinephrine HCl (Epinephrine 1:10,000) 1 mg IVPUSH ASDIRECTED PRN PRN Reason: ACLS Guidelines Fentanyl (Sublimaze) 50 mcg IVPUSH Q5M PRN PRN Reason: Pain Hydromorphone HCl (Dilaudid) 0.5 mg IVPUSH .Q5MIN PRN PRN Reason: Pain (severe 7-10) Lactated Ringer's (Ringers, Lactated) 1,000 mls @ 100 mls/hr IV ASDIRECTED ELOY Last Admin: 03/25/20 10:30 Dose: 100 mls/hr Documented by: Methotrexate Sodium (Methotrexate Pf) 84 mg IM ONETIME ONE Stop: 03/25/20 12:01 Naloxone HCl (Narcan) 0.1 mg IVPUSH ASDIRECTED PRN PRN Reason: Respiratory Depression Ondansetron HCl (Zofran) 4 mg IVPUSH ONETIME PRN PRN Reason: Nausea/Vomiting Discontinued Medications Fentanyl (Sublimaze) Confirm Administered Dose 100 mcg .ROUTE .STK-MED ONE Stop: 03/25/20 10:41 Fluorescein Sodium (Ak-Fluor) Confirm Administered Dose 5 ml .ROUTE .STK-MED ONE Stop: 03/25/20 07:53 Glycopyrrolate (Robinul) Confirm Administered Dose 0.6 mg .ROUTE .STK-MED ONE Stop: 03/25/20 11:40 Acetaminophen (Ofirmev) Confirm Administered Dose 100 mls @ as directed .ROUTE .STK-MED ONE Stop: 03/25/20 07:53 Acetaminophen (Ofirmev) Confirm Administered Dose 100 mls @ as directed .ROUTE .STK-MED ONE Stop: 03/25/20 10:38 Lidocaine HCl (Xylocaine-Mpf 1%) Confirm Administered Dose 5 ml .ROUTE .STK-MED ONE Stop: 03/25/20 10:43 Midazolam HCl (Versed 1 Mg/Ml) Confirm Administered Dose 2 mg .ROUTE .STK-MED ONE Stop: 03/25/20 10:41 Midazolam HCl (Versed 1 Mg/Ml) Confirm Administered Dose 2 mg .ROUTE .STK-MED ONE Stop: 03/25/20 11:54 Octyl Cyanoacrylate (Dermabond Advance) Confirm Administered Dose 1 applic .ROUTE .STK-MED ONE Stop: 03/25/20 11:13 Propofol (Diprivan 20 Ml) Confirm Administered Dose 200 mg .ROUTE .STK-MED ONE Stop: 03/25/20 10:40 Rocuronium [place] (Rocuronium [place]) Confirm Administered Dose 50 mg .ROUTE .STK-MED ONE Stop: 03/25/20 10:43 Sugammadex Sodium ([place]) Confirm Administered Dose 200 mg .ROUTE .STK-MED ONE Stop: 03/25/20 11:42 - Exam General: Reports: Alert, Oriented HEENT: Reports: Pupils Equal, Pupils Reactive, EOMI, Mucous Membr. Moist/[place] Neck: Reports: Supple Lungs: Reports: Clear to Auscultation, Normal Respiratory Effort Cardiovascular: Reports: Regular Rate, Regular Rhythm GI/Abdominal Exam: Normal Bowel Sounds, Soft, Non-Tender, No Organomegaly, No Distention, No Abnormal Bruit, No Mass, Pelvis Stable (Female) Exam: Normal External Exam, Normal Speculum Exam, Normal Bimanual Exam Rectal (Female) Exam: Normal Exam, Normal Rectal Tone Back Exam: Reports: Normal Inspection, Full Range of Motion Extremities: Normal Inspection, Normal Range of Motion, Non-Tender, No Pedal Edema, Normal Capillary Refill Skin: Reports: Warm, Dry, Intact Wound/Incisions: Reports: Healing Well Neurological: Reports: No New Focal Deficit Psy/Mental Status: Reports: Alert, Normal Affect, Normal Mood
--- NOTE | 2020-03-25 12:27 | PCM.POSTAN ---
POST ANESTHESIA ASSESSMENT - MENTAL STATUS Mental Status: Alert, Oriented - VITAL SIGNS Vital Signs: Last Vital Signs Temp 36.3 C 03/25/20 11:54 Pulse 70 03/25/20 12:21 Resp 12 03/25/20 12:21 BP 117/61 03/25/20 12:21 Pulse Ox 99 03/25/20 12:21 - RESPIRATORY Respiratory Status: Respiratory Rate WNL, Airway Patent, O2 Saturation Stable - CARDIOVASCULAR CV Status: Pulse Rate WNL, Blood Pressure Stable - GASTROINTESTINAL GI Status: No Symptoms - PAIN Pain Score: 0 - POST OP HYDRATION Hydration Status: Adequate & Stable - OBSERVATIONS Free Text/Narrative:: No anesthesia problems
[2020-03-25] MEDS ORDERED: Acetaminophen/HYDROcodone 325-5 MG Tab PO ONE (12:51)
[2020-03-25] MEDS ORDERED: Acetaminophen/HYDROcodone 325-5 MG Tab ONE (12:59)
--- NOTE | 2020-03-25 13:25 | PCM48HPAN ---
Post Anesthesia Note - EVALUATION WITHIN 48HRS OF ANESTHETIC Vital Signs in Normal Range: Yes Patient Participated in Evaluation: Yes Respiratory Function Stable: Yes Airway Patent: Yes Cardiovascular Function Stable: Yes Hydration Status Stable: Yes Pain Control Satisfactory: Yes Nausea and Vomiting Control Satisfactory: Yes Mental Status Recovered: Yes Vital Signs: Last Vital Signs Temp 37.1 C 03/25/20 12:28 Pulse 66 03/25/20 12:28 Resp 14 03/25/20 12:28 BP 115/56 L 03/25/20 12:28 Pulse Ox 100 03/25/20 12:28 - COMMENTS/OBSERVATIONS Free Text/Narrative:: No anesthesia problems
[2020-03-25] MEDS ORDERED: Ondansetron 8 MG Tab.DIS PO ONE (13:39)
--- NOTE | 2020-03-26 07:36 | OR ---
SURGEON: Sascha Little MD DATE OF PROCEDURE: 03/25/2020 PREOPERATIVE DIAGNOSIS: Tubal . POSTOPERATIVE DIAGNOSIS: Missed tubal . OPERATIONS PERFORMED: 1. Dilatation and evacuation. 2. Diagnostic laparoscopy. 3. Tubal . PULVERIZER: OR tech. ANESTHESIA: General with endotracheal intubation, Dr. Lee. ESTIMATED BLOOD LOSS: 150-200 mL. COMPLICATIONS: None. FINDINGS: A small left tubal , it is intermediate aborted through the tubes. Minimum hemoperitoneum. The right tube essentially is normal. INDICATION FOR SURGERY: This patient is 25. She is primigravida. She has a history of chlamydia. The patient came to the emergency room complaining of abdominal pain and pelvic pain. She had an hCG level of 3337. She had an ultrasound which shows no gestational sac, no pull; however, shows there is an adnexal mass with some free fluid, highly suspicious for tubal . The patient is referred to the office for evaluation and consultation, and I discussed the finding with the patient and the patient is in the process of transitioning from here to [place], and after presenting to her with the option, she elected to have a diagnostic laparoscopy with possible D and E. Detail of the procedure was discussed with her and the patient signed informed consent. PROCEDURE IN DETAIL: The patient was brought to the OR, properly identified. After adequate level of anesthesia, the patient was placed in the lithotomy position, prepped and draped in sterile fashion as usual. Prior to the placing the Hulka manipulator, the cervix was dilated to accommodate 5 cannulae and the endometrial cavity evacuated completely and uniformly. Decidual tissue was noted and no products of conception were noted. Then, the Hulka manipulator was placed in the uterus for manipulation. The operation shifted abdominally. Stab wound done umbilicus. The Veress needle was placed in the peritoneal cavity and that cavity insufflated with adequate amount of CO2 to place a 5 mm trocar utilizing the Visiport technique. After placing the patient in steep Trendelenburg, there was minimal amount, about less than 50 mL of blood-tinged fluid in the pelvis. The right tube was completely normal. The left tube showed distal what looked like a tubal , it was aborted. It seemed to be aborting through the tube. I enhanced the of that and there was blood clot. There was no tissue that could be retrieved and sent for pathology; however, there was no active bleeding, so I elected not to do salpingectomy on the patient. After thorough irrigation and observation, there was no bleeding, and later on I gave the patient methotrexate just to enhance the process and make sure that she does chorionic villi in her tube. After thorough irrigation, the procedure was ended. The instrument and sponge count was correct. The laparoscopic incision was closed in layer. There were 3 of them, one was central and both of them 5 mm trocar in the right to the left iliac fossa. The patient tolerated the procedure well. The instrument and sponge count was correct. The patient went to recovery room in stable general condition. MINA / SPENCER /[id number]
== END 2020-03-25 14:06 | disposition home or self-care (01) ==
LOC: MW.SDS 09:17
PROVIDERS: ATTEND Obstetrics & Gynecology
DX: O00.102 Left tubal pregnancy without intrauterine pregnancy (principal); J45.909 Unspecified asthma, uncomplicated; Z88.0 Allergy status to penicillin; Z91.040 Latex allergy status; Z79.899 Other long term (current) drug therapy; Z01.812 Encounter for preprocedural laboratory examination; Z20.822 Contact with and (suspected) exposure to COVID-19
CPT/HCPCS: 59150; 87635; A9270; J0131; J0330; J2001; J2250; J2704; J3490; J7120; J9260; 00840; J3010; U0002

== ENCOUNTER 2022-05-26 20:58 | Emergency (ER) | payer MEDICAID ==
[2022-05-26] MEDS ORDERED: Lidocaine 2% Viscous Solution 15 ML UD PO ONE (21:14)
[2022-05-26] MEDS ORDERED: Benzocaine 20% Topical Spray UD MUCMEM ONE (21:14)
== END 2022-05-26 21:33 | disposition home or self-care (01) ==
LOC: MW.ED 20:58
DX: K04.7 Periapical abscess without sinus (principal); J45.909 Unspecified asthma, uncomplicated; Z91.040 Latex allergy status; Z88.0 Allergy status to penicillin; Z79.899 Other long term (current) drug therapy
CPT/HCPCS: 99282; A9270; 99283

== ENCOUNTER 2024-07-12 18:34 | Inpatient (IN) | payer BC ==
[2024-07-12] MEDS ORDERED: Sodium Chloride 0.9% 2.5 ML Syringe FLUSH PRN (18:40)
[2024-07-12] MEDS ORDERED: Methylergonovine 0.2 MG/1 ML Amp IM PRN (18:40)
[2024-07-12] MEDS ORDERED: Water For Irrigation,Sterile 1,000 ML Container IRR PRN (18:40)
[2024-07-12] MEDS ORDERED: Carboprost Tromethamine 250 MCG/1 mL Vial IM PRN (18:40)
[2024-07-12] MEDS ORDERED: Sodium Chloride 0.9% 20 ML SDV IV PRN (18:40)
[2024-07-12] MEDS ORDERED: Sodium Chloride 0.9% 10 ML Syringe FLUSH PRN (18:40)
[2024-07-12] MEDS ORDERED: Misoprostol 200 MCG Tab PO PRN (18:40)
[2024-07-12] MEDS ORDERED: Lidocaine 1% 50 ML MDV INJECT PRN (18:40)
[2024-07-12] MEDS ORDERED: Butorphanol 1 MG/ML SDV IVPUSH PRN (18:40)
[2024-07-12] MEDS ORDERED: Ondansetron 4 MG/2 ML SDV IVPUSH PRN (18:40)
[2024-07-12] MEDS ORDERED: Terbutaline 1 MG/ML SDV SUBCUT PRN (18:40)
[2024-07-12] MEDS ORDERED: Misoprostol 200 MCG Tab RECTAL PRN (18:44)
[2024-07-12] MEDS ORDERED: Oxytocin/0.9 % Sodium Chloride 30 UNIT/500 ML BAG IV SCH (18:45)
[2024-07-12] MEDS: Lactated Ringers 1,000 ML IV SCH (19:20)
[2024-07-12] MEDS ORDERED: Ropivacaine/PF 400 MG/200 ML PCA EPIDUR SCH (19:30)
[2024-07-12 19:33] LABS: HEMATOCRIT 34.8 % (37.0-47.0); HEMOGLOBIN 12.4 g/dL (12.0-16.0); MEAN CORPUSCULAR HEMOGLOBIN 31.7 pg (28.0-32.0); MEAN CORPUSCULAR HGB CONC 35.6 g/dL (32.0-36.0); MEAN PLATELET VOLUME 9.8 fL (9.4-12.3); PLATELET COUNT,PLT 208 K/uL (150-400); RED BLOOD CELL COUNT 3.91 M/uL (4.10-5.30); WHITE BLOOD CELL COUNT,WBC 8.93 K/uL (3.9-11.3)
[2024-07-12] MEDS ORDERED: dexmedeTOMIDine HCl 200 MCG/2 ML SDV ONE (19:37)
[2024-07-12] MEDS ORDERED: Ropivacaine HCl/PF 200 ML ONE (19:37)
[2024-07-12] MEDS ORDERED: Phenylephrine HCl In 0.9% NaCl 1 MG/10 ML Syringe ONE (19:37)
[2024-07-12] MEDS: Oxytocin/0.9 % Sodium Chloride 30 UNIT/500 ML BAG IV SCH (22:32)
[2024-07-13] MEDS: Witch Hazel Medicated Pads 40/Jar TOP PRN (00:38)
[2024-07-13] MEDS: Benzocaine/Menthol 20%-0.5% Spray 78 GM Cannister TOP PRN (00:39)
[2024-07-13] MEDS: Lanolin 100% Cream 7 GM Tube TOP PRN (00:39)
[2024-07-13] MEDS: Acetaminophen 500 MG Tab PO PRN (00:43)
[2024-07-13] MEDS ORDERED: Phenylephrine HCl In 0.9% NaCl 1 MG/10 ML Syringe IVPUSH PRN (05:52)
[2024-07-13] MEDS ORDERED: ePHEDrine 50 MG/ML SDV IVPUSH PRN (05:52)
[2024-07-13] MEDS ORDERED: dexmedeTOMIDine HCl 200 MCG/2 ML SDV EPIDUR SCH (06:00)
[2024-07-13] MEDS ORDERED: Ropivacaine HCl/PF 400 MG in Premix Bag 1 BAG EPIDUR SCH (06:00)
[2024-07-13 06:48] LABS: HEMOGLOBIN 11.6 g/dL (12.0-16.0)
[2024-07-13] MEDS: Ibuprofen 800 MG Tab PO PRN (10:11)
[2024-07-13] MEDS: Docusate Sodium 100 MG Cap PO PRN (23:15)
== END 2024-07-14 12:20 | disposition home or self-care (01) | DRG 560 ==
LOC: MW.OBCHECK 18:34 → MW.OB 18:40 → OBSVTOIN 23:02 → MW.OB 07-13 01:51
PROVIDERS: ADMIT Obstetrics & Gynecology Obstetrics; ATTEND Obstetrics & Gynecology Obstetrics
PROC: 10E0XZZ Delivery of Products of Conception, External Approach (ICD-10-PCS; principal; 2024-07-12)
PROC: 3E0R3BZ Introduction of Anesthetic Agent into Spinal Canal, Percutaneous Approach (ICD-10-PCS; 2024-07-12)
PROC: 00HU33Z Insertion of Infusion Device into Spinal Canal, Percutaneous Approach (ICD-10-PCS; 2024-07-12)
DX: O99.214 Obesity complicating childbirth (principal); Z37.0 Single live birth; Z3A.39 39 weeks gestation of pregnancy
CPT/HCPCS: 01967; 36415; 51702; 59025; 59409; 85014; 85018; 85027; 86592; 86850; 86900; 86901; A9270-GY; J2371; J2590; J2795; J7120

== ENCOUNTER 2024-10-07 13:27 | Emergency (ER) | payer BC ==
[2024-10-07] MEDS ORDERED: Sodium Chloride 0.9% 10 ML Syringe FLUSH PRN (14:25)
[2024-10-07] MEDS ORDERED: Sodium Chloride 0.9% 2.5 ML Syringe FLUSH PRN (14:25)
[2024-10-07 15:15] LABS: BASOPHILS ABSOLUTE AUTO 0.02 K/uL (0.00-0.20); BASOPHILS PERCENT AUTO 0.3 % (0.0-1.0); EOSINOPHILS ABSOLUTE AUTO 0.08 K/uL (0.00-0.45); EOSINOPHILS PERCENT AUTO 1.4 % (0.0-6.0); IMMATURE GRAN ABSOLUTE AUTO 0.01 K/uL (0.00-0.05); IMMATURE GRAN PERCENT AUTO 0.2 % (0.0-0.4); LYMPHOCYTES ABSOLUTE AUTO 1.98 K/uL (1.00-4.80); LYMPHOCYTES PERCENT AUTO 33.6 % (24.0-44.0); MEAN PLATELET VOLUME 9.9 fL (9.4-12.3); MONOCYTES ABSOLUTE AUTO 0.31 K/uL (0.00-0.80); MONOCYTES PERCENT AUTO 5.3 % (0.0-8.0); NEUTROPHILS ABSOLUTE AUTO 3.49 K/uL (1.80-7.70); NEUTROPHILS PERCENT AUTO 59.2 % (41.0-71.0); NRBC ABSOLUTE 0.00 K/uL (0.00-0.02); NRBC PERCENT 0.0 /100WBC (0.0-0.2); PLATELET COUNT,PLT 250 K/uL (150-400); RED BLOOD CELL COUNT 4.48 M/uL (4.10-5.30); WHITE BLOOD CELL COUNT,WBC 5.89 K/uL (3.9-11.3)
[2024-10-07 15:24] LABS: INR 1.02 (0.86-1.11); PTT,PARTIAL THROMBOPLSTIN TIME 29.1 SEC (23.9-30.7)
[2024-10-07 15:28] LABS: A/G RATIO 1.2 (0.9-1.6); ALANINE AMINOTRANSFERASE,ALT 45.0 IU/L (14-63); ASPARTATE AMNIOTRANSFERASE,AST 24.0 IU/L (15-37); BILIRUBIN TOTAL 0.3 mg/dL (0.2-1.0); BLOOD UREA NITROGEN,BUN 12.0 mg/dL (7.0-18.0); CARBON DIOXIDE,CO2 28.2 mmol/L (21.0-32.0); CHLORIDE,CL 102.0 mmol/L (98-107); CREATININE 1.0 mg/dL (0.6-1.0); EST CRCL DRUG DOSING (CG) 74.02 mL/min; GLUCOSE RANDOM 97.0 mg/dL (74-106); POTASSIUM,K 4.0 mmol/L (3.5-5.1); PROTEIN TOTAL,TP 7.6 g/dL (6.4-8.2); SODIUM,NA 138.0 mmol/L (136-145)
[2024-10-07 15:30] LABS: ESTIMATED GFR 78.0 mL/min (>60)
[2024-10-07] MEDS: Iopamidol 755 MG/ML 500 ML Multipack Bottle IVPUSH STA (15:52)
== END 2024-10-07 17:06 | disposition home or self-care (01) ==
LOC: MW.ED 13:27
DX: M54.6 Pain in thoracic spine (principal); E66.9 Obesity, unspecified; Z91.040 Latex allergy status; Z88.0 Allergy status to penicillin; Z68.30 Body mass index [BMI] 30.0-30.9, adult
CPT/HCPCS: 36415; 70498; 71046; 72125; 72128; 80053; 84703; 85025; 85610; 85730; 99284; A9270; Q9967; 99283